=== PATIENT | female | born 1965 | race Caucasian/White ===

== ENCOUNTER 2018-03-02 17:56 | Emergency (ER) | payer OTHER ==
[2018-03-02 18:27] LABS: Clarity Clear (Clear)
[2018-03-02 18:38] LABS: Bacteria/HPF None Seen HPF (None Seen); Other Microscopic Description 1+ MUCUS; RBC/HPF 0-3 HPF (0-3); Squamous Epithelial 0-3 HPF (0-3); WBC/HPF 0-3 HPF (0-3)
== END 2018-03-02 18:59 | disposition home or self-care (01) ==
LOC: BURERS 17:56
DX: R10.33 Periumbilical pain (principal); F17.210 Nicotine dependence, cigarettes, uncomplicated
CPT/HCPCS: 81003; 81015; 99284

== ENCOUNTER 2018-04-24 08:01 | Emergency (ER) | payer OTHER ==
[2018-04-24] MEDS ORDERED: Sulfameth/Trimethoprim DS 800-160mg TAB ONE (08:18)
== END 2018-04-24 08:25 | disposition home or self-care (01) ==
LOC: BURERS 08:01
DX: S00.11XA Contusion of right eyelid and periocular area, initial encounter (principal); S00.81XA Abrasion of other part of head, initial encounter; L03.211 Cellulitis of face; F17.210 Nicotine dependence, cigarettes, uncomplicated; W17.89XA Other fall from one level to another, initial encounter
CPT/HCPCS: 99283

== ENCOUNTER 2019-11-25 17:27 | Emergency (ER) | payer OTHER | END 2019-11-25 17:44 | disposition home or self-care (01) | LOC: BURERS 17:27 | DX: J11.1 Influenza due to unidentified influenza virus with other respiratory manifestations (principal); F17.210 Nicotine dependence, cigarettes, uncomplicated | CPT/HCPCS: 99283 ==

== ENCOUNTER 2020-02-19 16:36 | Emergency (ER) | payer BC, SELFPAY ==
[~2020-02-19 16:36] MED LIST: Iopamidol 370 76% 100 ML VIAL ONE
[2020-02-19] MEDS ORDERED: Ketorolac Tromethamine 30 MG/ML VIAL ONE (17:02)
[2020-02-19 17:33] LABS: ALT (SGPT) 25 U/L (8-55); AST (SGOT) 26 U/L (5-34); Albumin 4.2 g/dL (3.5-5.0); Alkaline Phosphatase 72 U/L (40-110); Anion Gap 12 mmol/L (10-20); BUN (Urea Nitrogen) 11 mg/dL (9.8-20.1); Bilirubin, Total 0.3 mg/dL (0.2-1.2); Calc. Creatinine Clearance 0 mL/min (70-130); Calcium 9.4 mg/dL (7.8-10.44); Carbon Dioxide 26 mmol/L (22-29); Chloride 106 mmol/L (98-107); Estimated GFR-MDRD 88; Globulin 3.3 g/dL (2.4-3.5); Glucose 97 mg/dL (70-105); Potassium 3.7 mmol/L (3.5-5.1); Protein, Total 7.5 g/dL (6.0-8.3); Sodium 140 mmol/L (136-145)
[2020-02-19 17:34] LABS: Mean Corpuscular HGB CONC 31.5 g/dL (32.0-36.0); Mean Corpuscular Hemoglobin 31.9 pg (27.0-31.0); Mean Platelet Volume 10.2 fL (7.4-10.4); Platelet Count 222 thou/uL (130-400); RBC Distribution Width 12.5 % (11.5-14.5); White Blood Cell (WBC) Count 5.7 thou/uL (4.8-10.8)
[2020-02-19 17:40] LABS: #Basophils 0.1 thou/uL (0.0-0.2); #Eosinphils 0.1 thou/uL (0.0-0.7); #Lymphocytes 1.9 thou/uL (1.20-3.40); #Monocytes 0.5 thou/uL (0.11-0.59); #Neutrophils 3.1 thou/uL (1.40-6.50); %Basophils 2.1 % (0.0-1.0); %Eosinophils 2.4 % (0.0-10.0); %Lymphocytes 33.7 % (21.0-51.0); %Monocytes 7.9 % (0.0-10.0); %Neutrophils 53.9 % (42.0-75.0); Large Platelets SLIGHT; MDiff Complete? YES
[2020-02-19] MEDS ORDERED: Dexamethasone 4 mg/ml Vial ONE ×2 (18:01→18:11)
[2020-02-19] MEDS ORDERED: cefTRIAXone\\ROCEPHIN 1 GM VIAL ONE (18:11)
--- NOTE | 2020-02-19 19:35 | CT ---
CT NECK SOFT TISSUES WITH CONTRAST: Date: 02-19-2020 Technique: Spiral CT of the neck was performed after injection of IV contrast in this patient with a palpable ab normality on the right side of her neck. FINDINGS: A ring enhancing fluid-filled lesion is seen in the right peritonsillar region consistent with an abs cess. It is approximately 3 cm in superior- inferior length and about 2.4 cm in width. The palpable a bnormalities in this patient are due to an enlarged right jugulodigastric node and nearby deep cervic al nodes. The jugulodigastric node is nearly 3 cm long and some of the other deep cervical nodes are as large as 2.5 cm. All of this is in the expected lymphatic drainage of the tonsillar bed. The patient's airway is patent at this time. There is some very slight deviation of airway towards th e left at the level of the abscess. Additionally, in this patient one sees mucosal thickening and/or fluid in the sphenoid sinus, several ethmoid air cells bilaterally, and in the floor of the left maxillary sinus. IMPRESSION: 1. 3 cm right peritonsillar abscess with marked enlargement of the jugulodigastric and deep cervical nodes that drain this area. 2. Sinusitis, including the sphenoid sinus. Preliminary findings discussed with Dr. Sal at 1747 on 02-19-2020. POS: HOME
== END 2020-02-19 18:35 | disposition home or self-care (01) ==
LOC: BURERS 16:36
DX: J36 Peritonsillar abscess (principal); F17.210 Nicotine dependence, cigarettes, uncomplicated
CPT/HCPCS: 70491; 80053; 85025; 96374; 96375; J0696; J1100; J1885; Q9967

== ENCOUNTER 2020-06-02 17:57 | Emergency (ER) | payer BC ==
[2020-06-02] MEDS ORDERED: Ondansetron PF 4 MG/2 ML Vial ONE (18:30)
[2020-06-02] MEDS ORDERED: Ketorolac Tromethamine 30 MG/ML VIAL ONE ×2 (18:30→19:05)
[2020-06-02 18:46] LABS: #Basophils 0.1 thou/uL (0.0-0.2); #Eosinphils 0.2 thou/uL (0.0-0.7); #Lymphocytes 2.2 thou/uL (1.20-3.40); #Monocytes 0.6 thou/uL (0.11-0.59); #Neutrophils 6.1 thou/uL (1.40-6.50); %Basophils 1.4 % (0.0-1.0); %Eosinophils 2.1 % (0.0-10.0); %Lymphocytes 24.2 % (21.0-51.0); %Monocytes 6.3 % (0.0-10.0); Hemoglobin 14.2 g/dL (12.0-16.0); Mean Corpuscular Hemoglobin 32.3 pg (27.0-31.0); Mean Platelet Volume 9.6 fL (7.4-10.4); Platelet Count 228 thou/uL (130-400); RBC Distribution Width 11.8 % (11.5-14.5); Red Blood Cell (RBC) Count 4.41 mill/uL (4.20-5.40); White Blood Cell (WBC) Count 9.2 thou/uL (4.8-10.8)
[2020-06-02 19:02] LABS: ALT (SGPT) 32 U/L (8-55); AST (SGOT) 27 U/L (5-34); Alkaline Phosphatase 56 U/L (40-110); Anion Gap 13 mmol/L (10-20); BUN (Urea Nitrogen) 13 mg/dL (9.8-20.1); Bilirubin, Total 0.4 mg/dL (0.2-1.2); Calc. Creatinine Clearance 0 mL/min (70-130); Calcium 8.6 mg/dL (7.8-10.44); Carbon Dioxide 23 mmol/L (22-29); Chloride 107 mmol/L (98-107); Estimated GFR-MDRD 88; Globulin 2.8 g/dL (2.4-3.5); Glucose 91 mg/dL (70-105); Lipase 9 U/L (8-78); Protein, Total 6.8 g/dL (6.0-8.3); Sodium 139 mmol/L (136-145)
[2020-06-02] MEDS ORDERED: Sulfameth/Trimethoprim DS 800-160mg TAB ONE (19:05)
[2020-06-02] MEDS ORDERED: metroNIDAZOLE 250 MG TAB ONE (19:05)
--- NOTE | 2020-06-02 21:12 | CT ---
CT ABDOMEN AND PELVIS WITH CONTRAST: Date: 06-02-2020 Comparison: None FINDINGS: The lung bases are clear. No effusions are seen. The liver, spleen, pancreas, adrenal glands, kidneys , and abdominal aorta showed no acute findings. Some calcified granulomas are seen in the spleen. Diverticulosis is present in the left colon, particularly the sigmoid. The colonic wall here seems a bit thicker. There are a few spots where there may be some very minimal early stranding around the co silverio. There is no abscess or fluid collection of concern. The findings most likely represent very dimple y diverticulitis. The remainder of the colon and small bowel were unremarkable. CT of the pelvis showed no pelvic masses, fluid collections, or other acute changes. Degenerative lydia nges are present in the spine, particularly at the L5-S1 level. IMPRESSION: Probable early sigmoid diverticulitis. Preliminary findings discussed with Dr. Harvey at 1852 on 06-02-2020. POS: HOME
== END 2020-06-02 20:14 | disposition home or self-care (01) ==
LOC: BURERS 17:57
DX: K57.32 Diverticulitis of large intestine without perforation or abscess without bleeding (principal); F17.210 Nicotine dependence, cigarettes, uncomplicated
CPT/HCPCS: 36415; 74177; 80053; 83690; 85025; 96361; 96374; 96375; J1885; J2405; Q9967

== ENCOUNTER 2023-06-18 13:50 | Emergency (ER) | payer OTHER ==
[2023-06-18] MEDS ORDERED: Morphine 4 MG/ML VIAL ONE (14:39)
[2023-06-18] MEDS ORDERED: Ondansetron PF 4 MG/2 ML Vial ONE (14:40)
[2023-06-18 14:57] LABS: ALT (SGPT) 24 U/L (8-55); AST (SGOT) 30 U/L (5-34); Albumin 4.4 g/dL (3.5-5.0); Alkaline Phosphatase 69 U/L (40-110); Anion Gap 16 mmol/L (10-20); BUN (Urea Nitrogen) 7 mg/dL (9.8-20.1); Bilirubin, Total 0.3 mg/dL (0.2-1.2); Calc. Creatinine Clearance 0 mL/min (70-130); Calcium 9.4 mg/dL (7.8-10.44); Carbon Dioxide 24 mmol/L (22-29); Chloride 106 mmol/L (98-107); Estimated GFR 82; Globulin 3.1 g/dL (2.4-3.5); Glucose 101 mg/dL (70-105); Lipase 12 U/L (8-78); Potassium 3.8 mmol/L (3.5-5.1); Protein, Total 7.5 g/dL (6.0-8.3); Sodium 142 mmol/L (136-145)
[2023-06-18 15:02] LABS: #Basophils 0.1 thou/uL (0.0-0.2); #Eosinphils 0.1 thou/uL (0.0-0.7); #Lymphocytes 1.7 thou/uL (1.20-3.40); #Monocytes 0.2 thou/uL (0.11-0.59); #Neutrophils 2.7 thou/uL (1.40-6.50); %Basophils 1.4 % (0.0-1.0); %Eosinophils 1.7 % (0.0-10.0); %Lymphocytes 35.8 % (21.0-51.0); %Monocytes 4.6 % (0.0-10.0); %Neutrophils 56.6 % (42.0-75.0); Hematocrit 41.8 % (36.0-47.0); Hemoglobin 13.6 g/dL (12.0-16.0); Mean Corpuscular HGB CONC 32.5 g/dL (32.0-36.0); Mean Corpuscular Hemoglobin 31.2 pg (27.0-31.0); Mean Platelet Volume 10.3 fL (7.4-10.4); Platelet Count 187 10x3/uL (130-400); RBC Distribution Width 11.8 % (11.5-14.5); Red Blood Cell (RBC) Count 4.36 mill/uL (4.20-5.40); White Blood Cell (WBC) Count 4.7 10x3/uL (4.8-10.8)
[2023-06-18 15:12] LABS: Bilirubin Negative (Negative); Blood, Urine Negative (Negative); Clarity Clear (Clear); Glucose, Urine (Dipstick) Negative (Negative); Ketone, Urine Negative (Negative); Leukocyte Negative (Negative); Nitrite Negative (Negative); Protein, Urine (Dipstick) Negative (Neg-Trace); Specific Gravity, Urine 1.015 (1.005-1.030); Urobilinogen 0.2 mg/dL (Less than 2); pH, Urine 8.5 (5.0-9.0)
[2023-06-18 15:19] LABS: Bacteria/HPF Rare-Few HPF (None Seen); CAUTI Indications for Culture Dysuria,urgency,freq; RBC/HPF 0-3 HPF (0-3); Squamous Epithelial 0-3 HPF (0-3); Urine Culture Reflex No No; WBC/HPF None Seen HPF (0-3)
[2023-06-18] MEDS ORDERED: Iopamidol 370 76% 100 ML VIAL ONE (15:20)
== END 2023-06-18 17:29 | disposition home or self-care (01) ==
LOC: BURERS 13:50
DX: R10.32 Left lower quadrant pain (principal); F17.210 Nicotine dependence, cigarettes, uncomplicated
CPT/HCPCS: 74177; 80053; 81001; 83605; 83690; 85025; 96374; 96375; J2270; J2405; Q9967